=== PATIENT | female | born 1965 | race Caucasian/White ===

== ENCOUNTER 2022-11-05 03:08 | Emergency (ER) | payer OTHER | END 2022-11-05 09:38 | disposition home or self-care (01) | LOC: JP.ED 03:08 | DX: R09.02 Hypoxemia (principal); G47.9 Sleep disorder, unspecified; K21.9 Gastro-esophageal reflux disease without esophagitis; E11.9 Type 2 diabetes mellitus without complications; E66.9 Obesity, unspecified; Z88.2 Allergy status to sulfonamides; Z79.01 Long term (current) use of anticoagulants; Z79.899 Other long term (current) drug therapy; Z79.84 Long term (current) use of oral hypoglycemic drugs; Z68.39 Body mass index [BMI] 39.0-39.9, adult | CPT/HCPCS: 71045; 99284 ==

== ENCOUNTER 2022-11-06 03:04 | Emergency (ER) | payer OTHER ==
[2022-11-06] MEDS ORDERED: Ibuprofen 600 MG Tab PO ONE (07:07)
[2022-11-06] MEDS ORDERED: LORazepam 0.5 MG Tab PO ONE (07:07)
== END 2022-11-06 08:25 | disposition home or self-care (01) ==
LOC: JP.ED 03:04
DX: R09.02 Hypoxemia (principal); F43.81 Prolonged grief disorder; F41.9 Anxiety disorder, unspecified; E11.9 Type 2 diabetes mellitus without complications; Z79.01 Long term (current) use of anticoagulants; Z79.899 Other long term (current) drug therapy; Z88.2 Allergy status to sulfonamides
CPT/HCPCS: 99284; A9270